=== PATIENT | female | born 1970 | race Caucasian/White ===

== ENCOUNTER 2024-12-26 17:45 | Emergency (ER) | payer OTHER, SELFPAY ==
--- OUTSIDE RECORDS SUMMARY | 2024-12-26 17:54 | XMS_ITS | Clinical Summary ---
Author Organization [facility] Address [address] 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 05/30/2024 Active nitrofurantoin (MACROBID) 100 mg capsule Take 1 Capsule by mouth daily. 05/30/2024 Active torsemide (DEMADEX) 20 mg tablet Take 2 Tablets by mouth daily. 05/30/2024 Active spironolactone (ALDACTONE) 50 mg tablet Take 1 Tablet by mouth daily. 05/30/2024 Active allopurinoL (ZYLOPRIM) 300 mg tablet Take 1 Tablet by mouth daily. 05/30/2024 Active levothyroxine 112 mcg tablet Take 1 Tablet by mouth daily. 05/30/2024 Active ergocalciferol (VITAMIN D2) 50,000 unit capsule Take 1 Capsule by mouth every 7 days. 05/30/2024 Active ezetimibe (ZETIA) 10 mg tablet Take 1 Tablet by mouth daily. 05/30/2024 Active losartan (COZAAR) 50 mg tablet Take 1 Tablet by mouth daily. 05/30/2024 Active famotidine (PEPCID) 20 mg tablet Take 1 Tablet by mouth 2 times daily. 05/30/2024 Active potassium chloride (KLOR-CON M20) 20 mEq Extended Release tablet Take 200 mEq by mouth 2 times daily. 05/30/2024 Active oxyCODONE-aceta minophen (PERCOCET) 7.5-325 mg Tablet Take 1 Tablet by mouth 3 times daily. 06/14/2024 Active gabapentin (NEURONTIN) 300 mg capsule Take 300 mg by mouth 4 times daily. Active aspirin (ECOTRIN EC) 81 mg Tablet, Delayed Release (E.C.) 1 tablet Orally Once a day 06/23/2024 Active Pristiq 50 mg Extended Release 24 hour tablet Take 1 tablet every day by oral route for 30 days. 07/08/2024 Active docusate sodium (Colace) 100 mg capsule 2 capsule as needed Orally Once a day 06/23/2024 Active Active Problems No known active problems Encounters Date Type Department Care Team Description 12/07/2024 External Device Data [facility] ABSTRACTION Provider, Abstract 12/06/2024 External Device Data [facility] ABSTRACTION Provider, Abstract 11/08/2024 External Device Data [facility] ABSTRACTION Provider, Abstract 10/18/2024 External Device Data [facility] ABSTRACTION Provider, Abstract 10/12/2024 External Device Data [facility] ABSTRACTION Provider, Abstract 10/11/2024 External Device Data [facility] ABSTRACTION Provider, Abstract 09/27/2024 External Device Data [facility] ABSTRACTION Provider, Abstract from Last 3 Months Family History Medical History Relation Name Comments No Known Problems Daughter 1 Diabetes Father Heart Disease Father High Cholesterol Father Hypertension Father Pancreatic Cancer Father Hypertension Mother No Known Problems Son Relation Name Status Comments Daughter 1 Alive Father Mother Son Alive Social History Tobacco Use Types Packs/Day Years Used Date Smoking Tobacco: Former Cigarettes Smokeless Tobacco: Never Tobacco Cessation:Counseling Given: Not Answered Alcohol Use Standard Drinks/Week Comments Yes 0 (1 standard drink = 0.6 oz pur e alcohol) occasionally Comments Unknown Sex and Gender Information Value Date Recorded Sex Assigned at Not on file Legal Sex Female 5:52 AM [employer] Gender Identity Not on file Sexual Orientation Not on file Last Filed Vital Signs Vital Sign Reading Time Taken Comments Blood Pressure 130/76 07/28/2024 8:29 AM [employer] Pulse 103 06/21/2024 1:54 PM [employer] Temperature - - Respiratory Rate - - Oxygen Saturation 92% 06/21/2024 1:54 PM [employer] Inhaled Oxygen Concentration - - Weight 106.6 kg (235 lb) 07/28/2024 8:29 AM [employer] Height 157.5 cm (5' 2 ) 07/28/2024 8:29 AM [employer] Body Mass Index 42.98 07/28/2024 8:29 AM [employer] Plan of Treatment Upcoming Encounters Date Type Department Care Team (Late st Contact Info) Description 01/12/2025 2:00 PM CDT Office Visit [facility] [place] [address] [place] [address] Roxana Romero MD [address] [place] [address] 02/22/2025 1:00 PM CDT Office Visit [facility] [address] [place] [address] Nicolas Abrams MD [address] [place] [address] Health Maintenance Due Date Last Done Comments Pre-Diabetes and Diabetes Screening 1970 DTAP/TDAP/TD VACCINES (1 - Tdap) 1989 HEPATITIS B VACCINES (1 of 3 - 19+ 3-dose series) 1989 HPV/Cotest (21-29) 1991 CERVICAL CANCER SCREENING 01/29/2000 HPV/Cotest (30-65) 01/29/2000 PAP SMEAR 01/29/2000 BREAST CANCER SCREENING 2010 COLORECTAL SCREENING 2015 Colorectal Cancer Screening 2015 FIT-DNA Q 3 years 2015 FIT/FOBT Q 1 year 2015 Flex Sig/CT Colonography Q 5 years 2015 ZOSTER VACCINE (1 of 2) 01/29/2020 COVID-19 Vaccine ( - season) 2024, 12/27/2020 INFLUENZA VACCINE (#1) 2024 Insurance [employer] EX[employer]
--- OUTSIDE RECORDS SUMMARY | 2024-12-26 17:54 | XMS_ITS | Clinical Summary ---
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 Role Phone Unavailable Primary Care Provider Unavailabl e Social History Tobacco Use Types Packs/Day Years Used Date Smoking Tobacco: Never Assessed Comments Unknown Sex and Gender Information Value Date Recorded Sex Assigned at Not on file Legal Sex Female 11:49 AM L[employer]ED [employer] Gender Identity Not on file Sexual Orientation Not on file Plan of Treatment Health Maintenance Due Date Last Done Comments DTAP/TDAP/TD VACCINES (1 - Tdap) 1989 HEPATITIS B VACCINES (1 of 3 - 19+ 3-dose series) 10/1988 HPV/Cotest (21-29) 1991 CERVICAL CANCER SCREENING 01/29/2000 HPV/Cotest (30-65) 01/29/2000 PAP SMEAR 01/29/2000 BREAST CANCER SCREENING 2010 COLORECTAL SCREENING 2015 Colorectal Cancer Screening 2015 FIT-DNA Q 3 years 2015 FIT/FOBT Q 1 year 2015 Flex Sig/CT Colonography Q 5 years 2015 ZOSTER VACCINE (1 of 2) 01/29/2020 INFLUENZA VACCINE (#1) 2024
[2024-12-26 17:59] VITALS: BP 114/73; PULSE 108; RESP 17; TEMP 36.7; O2SAT 93; BMI 40.2
--- NOTE | 2024-12-26 18:11 | CTR_ITS ---
PROCEDURE INFORMATION: Exam: CT Abdomen And Pelvis Without Contrast Exam date and time: 12/26/2024 6:19 PM Age: 54 years old Clinical indication: Abdominal pain; Flank; Right; Additional info: Flank pain TECHNIQUE: Imaging protocol: Computed tomography of the abdomen and pelvis without contrast. Radiation optimization: All CT scans at this facility use at least one of these dose optimization techniques: automated exposure control; mA and/or kV adjustment per patient size (includes targeted exams where dose is matched to clinical indication); or iterative reconstruction. COMPARISON: No relevant prior studies available. RADIATION DOSE METRICS: Total DLP (mGy-cm): 1049.13 FINDINGS: Lungs: Few scattered strands at the lung bases. Liver: Probable hepatomegaly, unknown clinical significance. Probable fatty liver with sparing in the region of the gallbladder fossa. Gallbladder and biliary ducts: Gallbladder contracted, difficult to visualized. Pancreas: Normal. No ductal dilation. Spleen: Normal. No splenomegaly. Adrenal glands: Normal. No mass. Kidneys and ureters: Few nonspecific although commonly benign renal cysts. Few probable hemorrhagic renal cysts. Stomach and bowel: Mild sigmoid and descending colon diverticulitis without definite significant focal collection amenable to percutaneous drainage. Otherwise Unremarkable. No obstruction. No mucosal thickening. Appendix: No evidence of appendicitis. Intraperitoneal space: Unremarkable. No free air. No significant fluid collection. Vasculature: Aortic and coronary atherosclerosis. Aortic atherosclerosis. Lymph nodes: Unremarkable. No enlarged lymph nodes. Urinary bladder: Unremarkable as visualized. Reproductive: Unremarkable as visualized. Bones/joints: Unremarkable. No acute fracture. Soft tissues: Unremarkable. CT/CT kidney stone 10057 IMPRESSION: Mild sigmoid and descending colon diverticulitis without definite significant focal collection amenable to percutaneous drainage. Aortic and coronary atherosclerosis. COMMENTS: Consistent with the [employer]'s Incidental Findings Committee white paper (J Am Stacey Radiol 2018): Any incidental renal lesion less than 1 cm or classified as too small to characterize, or any incidental cystic renal lesion characterized as simple-appearing, is likely benign. No follow-up imaging is recommended for these lesions per consensus recommendations based on imaging criteria.
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
[2024-12-26 18:29] VITALS: BP 133/70; O2SAT 95
[2024-12-26 18:38] VITALS: BP 133/70; O2SAT 95
[2024-12-26 18:43] LABS: Glucose Urine UA 1+ (Normal); Nitrate Urine Negative (Negative); Specific Gravity, Urine 1.012 (1.005-1.030)
[2024-12-26 18:49] LABS: Add Urine Microscopic? YES
[2024-12-26 18:50] VITALS: RESP 18
[2024-12-26] MEDS: ondansetron 2 mg/ML SDV 2 mL 4 MG IVP (18:50)
[2024-12-26] MEDS: morphine 4 mg/mL SDV 1 mL IVP (18:50)
[2024-12-26 18:52] LABS: Hematocrit 40.2 % (36-47); Hemoglobin 13.90 g/dL (11.27-16.99); Mean Corpuscular HGB Conc 34.6 g/dL (30-55); Mean Corpuscular Hemoglobin 33.0 pg (27-33); Mean Corpuscular Volume 95.5 fl (85-98); Nucleated Red Blood Cells % 0 %; Platelet Count 310 10^3/cmm (157-399); Red Blood Count 4.21 10^6/uL (3.85-5.65); White Blood Count 12.84 10^3/uL (3.29-11.43)
[2024-12-26 19:14] LABS: Alanine Aminotransferase 41 U/L (0-33); Albumin Level 4.8 g/dL (3.5-5.2); Alkaline Phosphatase 145 U/L (35-105); Anion Gap 22.9 (5-19); Aspartate Amino Transferase 21 U/L (0-32); Blood Urea Nitrogen 29 mg/dL (6-20); Calcium 10.5 mg/dL (8.5-10.5); Carbon Dioxide 22 mmol/L (22-29); Chloride 99 mmol/L (98-107); Creatinine Clr Calc Pharmacy 50.7465; Globulin 3.2 g/dL (1.3-4.6); Glucose 135 mg/dL (65-115); Lipase 64 U/L (13-60); Osmolality Calculated 298 mOsm/kg (285-295); Potassium 3.9 mmol/L (3.5-5.1); Sodium 140 mmol/L (136-145); Total Protein 8.0 g/dL (6.6-8.7)
[2024-12-26 19:30] VITALS: BP 129/67; PULSE 85; O2SAT 94
== END 2024-12-26 19:40 | disposition home or self-care (01) ==
PROVIDERS: Emergency Provider Emergency Medicine; PCP Nurse Practitioner Family
DX: K57.92 Diverticulitis of intestine, part unspecified, without perforation or abscess without bleeding (principal); M54.9 Dorsalgia, unspecified
CPT/HCPCS: 74176; 80053; 81001; 83690; 85025; 96361; 96374; 96375; 99285; J1885; J2270; J2405; J7030